=== PATIENT | female | born 1960 | race Caucasian/White ===

== ENCOUNTER 2016-06-22 12:23 | Emergency (ER) | payer MEDICAID, OTHER ==
[~2016-06-22] VITALS: Ht 170.2 cm; Wt 76.3 kg
[~2016-06-22 12:23] MED LIST: DILTIAZEM; LISI-167
[2016-06-22 12:26] VITALS: BP 152/90
[2016-06-22 13:16] LABS: DAU SCREEN DISCLAIMER
== END 2016-06-22 13:53 | disposition home or self-care (01) ==
LOC: ED 13:45
DX: Z00.00 Encounter for general adult medical examination without abnormal findings (principal); I10 Essential (primary) hypertension; Z88.0 Allergy status to penicillin
CPT/HCPCS: 80307; 99283

== ENCOUNTER 2016-10-11 17:56 | Emergency (ER) | payer MEDICAID ==
[~2016-10-11] VITALS: Ht 165.1 cm; Wt 76.4 kg
[2016-10-11 18:04] VITALS: BP 156/93
== END 2016-10-11 18:23 | disposition home or self-care (01) ==
LOC: ED 18:17
DX: M54.5 Low back pain (principal); Z53.21 Procedure and treatment not carried out due to patient leaving prior to being seen by health care provider